=== PATIENT | female | born 1970 | race Caucasian/White ===

== ENCOUNTER 2017-06-20 11:38 | Emergency (ER) | payer SELFPAY ==
[~2017-06-20] VITALS: Ht 167.6 cm; Wt 101.2 kg
[2017-06-20] MEDS ORDERED: TRIM/SULFAMETH 160/800 (SEPTRA DS) TAB PO STA (13:13)
--- NOTE | 2017-06-20 13:15 | ED Lower Extremity ---
General Chief Complaint: Lower Extremity Stated Complaint: FALL/L LEG SWELLING/PAIN Nursing Triage Note: PT AMBUALTED TO ROOM. PT STATES 2 DAYS AGO SHE FELL IN HER SHOWER AND HIT BOTH HER LEGS ON THE BATHTUB. PT COMPLAINS OF SEVERE PAIN IN HER LEFT LEG AND REDNESS AND SWELLING. Nursing Sepsis Screen: No Definite Risk Source: patient Exam Limitations: no limitations History of Present Illness Time seen by provider: 13:05 Initial Comments Here with report of left anterior leg pain after falling in the shower not once but twice 2 days ago while washing her grandchild. States that she has redness to the anterior watkins and is concerned about infection. The right anterior watkins area also has a wound but does not have the same surrounding redness. This is what caused her concern on the left leg. Denies fever or chills. Does report increasing pain to the anterior portion where there is redness Onset: other (2days ago) Severity: moderate Pain/Injury Location: left leg Method of Injury: direct blow, fell Modifying Factors: Worse With Movement, Improves With Pain Medication Allergies and Home Medications Allergies Coded Allergies: Penicillins (Verified Allergy, Unknown, 06/20/17) tramadol (Verified Allergy, Unknown, 06/20/17) Constitutional: see HPI, No chills, No fever Respiratory: no symptoms reported Cardiovascular: no symptoms reported Musculoskeletal: see HPI, muscle pain, muscle stiffness Skin: see HPI, lesions Past Kxosvap-Arlqwv-Ovpuom Hx Patient Social History Alcohol Use: Denies Use Recreational Drug Use: Yes Drug of Choice: POT Smoking Status: Current Everyday Smoker Type Used: Cigarettes 2nd Hand Smoke Exposure: Yes Recent Foreign Travel: No Contact w/Someone Who Travel: No Recent Infectious Disease Expo: No Recent Hopitalizations: No Seasonal Allergies Seasonal Allergies: No Surgeries Surgeries: Appendectomy, Section, Gallbladder, Orthopedic Respiratory Respiratory Disorders: Pneumonia, COPD Cardiovascular Cardiac Disorders: Hypertension Gastrointestinal Gastrointestinal Disorders: Chronic Diarrhea Reviewed Nursing Assessment Reviewed/Agree w Nursing PMH: Yes Family Medical History Significant Family History: No Pertinent Family Hx Physical Exam Vital Signs Vital Sign - Last 12Hours 06/20/17 12:38 Temp 97.7 Pulse 75 Resp 20 B/P (MAP) 140/104 Pulse Ox 100 O2 Delivery Room Air Capillary Refill : Less Than 3 Seconds General Appearance: WD/WN, no apparent distress Cardiovascular: regular rate, rhythm, no murmur Respiratory: lungs clear, normal breath sounds Gastrointestinal: non tender, soft Legs: left leg swelling (swelling with erythema and a central small wound to the left anterior mid tibia region distal to the knee to the mid leg area. Approximately 3 x 10 cm erythema with a 1 x 1 cm area of excoriation/wound.) Feet: bilateral foot non-tender, bilateral foot normal inspection, bilateral foot normal range of motion Neurologic/Psychiatric: alert, oriented x 3 Skin: warm/dry, other (as described above.) Progress/Results/Core Measures Results/Orders My Orders Orders - IAIN MCCORMICK MD Tibia/Fibula, Left, 2 Views (06/20/17 13:13) Sulfamethoxazole/Trimet Ds Tab (Bactrim (06/20/17 13:13) Vital Signs/I&O Vital Sign - Last 12Hours 06/20/17 12:38 Temp 97.7 Pulse 75 Resp 20 B/P (MAP) 140/104 Pulse Ox 100 O2 Delivery Room Air Blood Pressure Mean: 116 Progress Note : Progress Note Seen and evaluated. X-ray left tib-fib. Bactrim DS one tab by mouth. Discharged home with return precautions. Patient verbalize understanding instructions and agreement with plan. Diagnostic Imaging Diagonstic Imaging: Xray Plain Films/CT/US/NM/MRI: leg Comments VIA [place], [place] NAME: LORRIE DIEGO [facility] REC#: [id number] PT STATUS: REG ER : 1970 PHYSICIAN: IAIN MCCORMICK MD ADMIT DATE: 06/20/17/ER Draft Date of Exam:06/20/17 TIBIA/FIBULA, LEFT, 2 VIEWS INDICATION: Left leg injury, pain. COMPARISON: None. FINDINGS: Two views of the left tibia-fibula demonstrate no fracture or dislocation. Articular surfaces are normal. No foreign body. IMPRESSION: Negative left tibia-fibula. Dictated on workstation # [id number] Dict: 06/20/17 1338 Trans: 06/20/17 1341 [id number] Interpreted by: MYESHA PINTO Electronically signed by: Departure Impression Impression: Primary Impression: Contusion of lower leg, left Qualified Codes: S80.12XA - Contusion of left lower leg, initial encounter Additional Impression: Cellulitis of left lower extremity Disposition: 01 HOME, SELF-CARE Condition: Improved Departure-Patient Inst. Decision time for Depature: 13:52 Referrals: NO,LOCAL PHYSICIAN (PCP/Family) Primary Care Physician Patient Instructions: Cellulitis (Skin Infection), Adult (DC), Contusion (DC) Add. Discharge Instructions: All discharge instructions reviewed with patient and/or family. Voiced understanding. Take medications as directed. You may take ibuprofen 800 mg every 8 hours as needed for pain as well. Drink plenty of fluids. Follow-up with your DrIsak in a few days for recheck. Return for worse pain, swelling, or increasing redness, weakness or other concerns as needed. Scripts Sulfamethoxazole/Trimethoprim (Sulfamethoxazole-Tmp Ds Tablet) 1 Each Tablet 1 EACH PO BID, #14 TAB 0 Refills Prov: IAIN MCCORMICK MD 06/20/17 Hydrocodone/Acetaminophen (Hydrocodon -Acetaminophen 5-325) 1 Each Tablet 1-2 EACH PO Q6H Y for pain, #10 TAB 0 Refills Prov: IAIN MCCORMICK MD 06/20/17 IAIN MCCORMICK MD Jun 20, 2017 13:15
--- NOTE | 2017-06-20 13:41 | Diagnostic Imaging Report ---
INDICATION: Left leg injury, pain. COMPARISON: None. FINDINGS: Two views of the left tibia-fibula demonstrate no fracture or dislocation. Articular surfaces are normal. No foreign body. IMPRESSION: Negative left tibia-fibula. Dictated by: Dictated on workstation # [id number]
[2017-06-20] MEDS ORDERED: HYDR-3812 PO (13:54)
[2017-06-20] MEDS ORDERED: SULF-222 PO (13:54)
[2017-06-20 14:00] VITALS: BP 152/104
== END 2017-06-20 14:00 | disposition home or self-care (01) ==
LOC: ER 11:42
DX: S80.12XA Contusion of left lower leg, initial encounter (principal); L03.116 Cellulitis of left lower limb; I10 Essential (primary) hypertension; J44.9 Chronic obstructive pulmonary disease, unspecified; F12.10 Cannabis abuse, uncomplicated; F17.210 Nicotine dependence, cigarettes, uncomplicated; Z87.59 Personal history of other complications of pregnancy, childbirth and the puerperium; W01.198A Fall on same level from slipping, tripping and stumbling with subsequent striking against other object, initial encounter; Y92.002 Bathroom of unspecified non-institutional (private) residence as the place of occurrence of the external cause
CPT/HCPCS: 73590; 99283